=== PATIENT | female | born 1965 | race Asian ===

== ENCOUNTER 2024-01-04 15:42 | Emergency (ER) | payer SELFPAY ==
[2024-01-04 15:44] VITALS: BP 153/90
--- NOTE | 2024-01-04 17:05 | ED.GENMED ---
History of Present Illness
General
Chief Complaint: Exposure-Chemical
Time Seen by Provider: 01/04/24 16:59
History of Present Illness
History of Present Illness:
58-year-old female presents to the emergency department for evaluation of a transient episode of dizziness and disorientation that occurred while at work today. She states this occurred after 'smelling a strong odor from an unknown chemical'. She
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
fullness. The symptoms have since improved. Denies any palpitations or chest pain. 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
Review of Systems
Review of Systems
Allergies reviewed?: Yes
All Other Systems: ROS reviewed and negative except as documented in HPI and ROS
Phy Exam
Physical Exam
Physical Exam:
GEN: Well appearing, NAD, WDWN
HEENT: Oral mucosa moist, no scleral icterus
Cardiac: Regular rate and rhythm, no murmurs
Lung: No respiratory distress, no tachypnea
MSK: No gross deformity or injuries
Skin: Good color, no pallor or jaundice, no rashes
Neuro: AO x3, moves all extremities freely
Psych: Calm, cooperative
Course
Vital Signs
Initial and Last Documented VS:
Initial Vital Signs
Temp Pulse Resp BP Pulse Ox
97.7 F 68 16 153/90 99
01/04/24 15:44 01/04/24 15:44 01/04/24 15:44 01/04/24 15:44 01/04/24 15:44
Last Documented Vital Signs
Temp Pulse Resp BP Pulse Ox
97.7 F 68 20 124/77 98
01/04/24 15:44 01/04/24 17:32 01/04/24 17:32 01/04/24 17:32 01/04/24 17:32
MDM/Problems Addressed
MDM/Problems Addressed:
The patient is overall well-appearing. Given the fact that we cannot identify the compound and did review in MSDS I do not see any utility to lab testing or EKGs particular given the patient's improved clinical appearance. Discharged in stable
condition. Cleared to return to work from my standpoint
*Critical Care Note
Total Time (30-74mins, 75-104mins- exclusive of procedures): Not Applicable
ED Attending Note
-
Portions of this chart may have been created with voice recognition software.� Occasional wrong word or��sound alike� substitutions may have occurred due to the inherent limitations of voice recognition software.
Discharge Plan
Departure
Patient Disposition: Home (Routine Discharge)
Date of Disposition: 01/04/24
Time of Disposition: 17:05
Patient with high blood pressure during this ER visit?: No
Discharge Problem:
Exposure to chemical irritant
Stand Alone Forms: Return to Work
Activity Restrictions/Additional Instructions:
There is no way to determine what you were exposed to
Your symptoms are improving and blood work will not provide us any useful details
Stay hydrated
You are cleared to return to work tomorrow
Interventions
Interventions:
*Risk Screen - Suicide Last Done: 01/04/24 17:00
*General Assessment Last Done: 01/04/24 17:00
*Neglect/Abuse Screening Last Done: 01/04/24 17:00
*Nursing Disposition Last Done: 01/04/24 17:32
ED-EENT Assessment Last Done: 01/04/24 17:00
ED- Pulmonary Assessment Last Done: 01/04/24 17:00
ED-Skin Assessment Last Done: 01/04/24 17:00
Discharge Date and Time
Discharge Date/Time: 01/04/24 17:33
Print Language: YAKUT
[2024-01-04 17:32] VITALS: BP 124/77
== END 2024-01-04 17:33 | disposition home or self-care (01) ==
LOC: EMR 15:42
PROVIDERS: EMERGENCY PHYSICIAN Emergency Medicine
DX: R41.0 Disorientation, unspecified (principal); R42 Dizziness and giddiness; Z77.098 Contact with and (suspected) exposure to other hazardous, chiefly nonmedicinal, chemicals
CPT/HCPCS: 99282